=== PATIENT | male | born 1945 | race Caucasian/White ===

== ENCOUNTER → 2023-06-07 09:00 | Outpatient (REF) | payer OTHER, SELFPAY | LOC: RCS 09:00 | PROVIDERS: ATTENDING PHYSICIAN Family Medicine | DX: R55 Syncope and collapse (principal); R00.0 Tachycardia, unspecified; L74.510 Primary focal hyperhidrosis, axilla | CPT/HCPCS: 93225; 93226 ==

== ENCOUNTER → 2023-12-02 17:37 | Outpatient (REF) | payer OTHER, SELFPAY | LOC: PAVMRI 17:37 | PROVIDERS: ATTENDING PHYSICIAN Physician Assistant | DX: M25.561 Pain in right knee (principal); R20.2 Paresthesia of skin | CPT/HCPCS: 73721 ==

== ENCOUNTER → 2024-08-25 12:07 | Outpatient (REF) | payer OTHER, SELFPAY | LOC: RAD 12:07 | PROVIDERS: ATTENDING PHYSICIAN Physician Assistant | DX: M79.671 Pain in right foot (principal) | CPT/HCPCS: 73630 ==

== ENCOUNTER → 2025-05-30 12:42 | Outpatient (REF) | payer OTHER, SELFPAY | LOC: RAD 12:42 | PROVIDERS: ATTENDING PHYSICIAN Physician Assistant | DX: M51.362 Other intervertebral disc degeneration, lumbar region with discogenic back pain and lower extremity pain (principal); M51.26 Other intervertebral disc displacement, lumbar region; M54.6 Pain in thoracic spine; R20.2 Paresthesia of skin | CPT/HCPCS: 72072; 72110 ==

== ENCOUNTER → 2025-06-29 15:13 | Outpatient (REF) | payer OTHER, SELFPAY | LOC: PAVMRI 15:13 | PROVIDERS: ATTENDING PHYSICIAN Pain Medicine Interventional Pain Medicine; FAMILY PHYSICIAN Family Medicine | DX: M54.16 Radiculopathy, lumbar region (principal) | CPT/HCPCS: 72148 ==

== ENCOUNTER 2025-09-15 11:40 | Inpatient (IN) | payer OTHER, SELFPAY ==
[2025-09-14] VITALS (9 sets, daily range): BP systolic 124–153; BP diastolic 50–96; BMI 28.5; BMI 28.0
[2025-09-14 17:38] LABS: Hematocrit 44.7 % (39.0-52.0); Hemoglobin 14.5 g/dL (13.0-18.0); Mean Corp Hgb Conc. 32.4 g/dL (33.0-37.0); Mean Corpuscular Volume 88.0 fL (80.0-94.0); Nucleated Red Blood Cells % 0 % (-); Platelet Count 288 10^3/uL (130-400); Red Cell Dist. Width 13.6 % (11.5-14.5)
[2025-09-14] MEDS: ASPIRIN 325 MG PO (17:51)
[2025-09-14 18:03] LABS: ALT (SGPT) 23 U/L (0-50); AST (SGOT) 23 U/L (17-59); Albumin 4.3 g/dl (3.5-5.0); Alkaline Phosphatase 77 U/L (38-126); Blood Urea Nitrogen 21 mg/dl (9-20); Calcium 9.2 mg/dl (8.4-10.2); Carbon Dioxide 27 mmol/L (22-30); Chloride 106 mmol/L (98-107); Estimated Creatinine Clearance 66 ml/min; Glucose 86 mg/dl (70-99); Potassium 4.6 mmol/L (3.5-5.1); Sodium 138 mmol/L (135-145); Total Protein 7.1 g/dl (6.3-8.2); eGFR > 60.00
--- NOTE | 2025-09-14 18:45 | ED.GENMED ---
History of Present Illness
General
Chief Complaint: Dizziness
Source: patient and spouse
Exam Limitations: none
Time Seen by Provider: 09/14/25 17:13
History of Present Illness
History of Present Illness:
79-year-old male who presents for evaluation of dizziness accompanied by difficulty walking and difficulty with speech. Patient states that over the last few days he was getting dizzy when he bent over to pick something up. He states that he was
on a hunting trip and today when he got up he felt his legs were not right. at bedside states that when he got home the patient's speech seemed slurred. They feel that the speech is better now. Patient states he was able to get to see his
doctor and he was off balance when she tried to walk him. He states laying in bed he feels okay but just does not feel himself. No chest pain. No shortness of breath. No headache. No vision changes. Patient states he does not take any
medications. He is a former smoker. Patient did recently get treated for shingles a few weeks ago on his right face
Past History
Past History
ED Past Medical History: GERD, Hypercholesterolemia, Other (oa) and Other (Gout, cervical DJD, diverticulitis)
ED Past Surgical History: Orthopedic (Left hand surgery after traumatic finger amputations 09/15/2012)
Social History
Tobacco: Former smoker
Alcohol: Occasional
Drug: None
Personal:
Living: with family
Employment: Employed
Family History
Family History: Other (Noncontributory)
Phy Exam
Physical Exam
Physical Exam:
CONSTITUTIONAL Patient alert and oriented to person, place and time. Well-appearing. Vital signs reviewed.
HEAD atraumatic, normocephalic.
EYES eyelids normal to inspection, Extraocular muscles intact, Conjunctiva normal, Sclera normal.
NECK normal range of motion, Trachea midline, no jugular venous distention.
RESPIRATORY CHEST No respiratory distress noted, Chest expansion equal, Bilateral breath sounds clear.
CARDIOVASCULAR regular rate and rhythm, Heart sounds normal.
ABDOMEN abdomen nontender, Bowel sounds normal. No distention.
BACK normal inspection, no obvious deformities
UPPER EXTREMITY range of motion normal, Motor strength normal, no cyanosis, no edema.
LOWER EXTREMITY range of motion normal, Motor strength normal, no cyanosis, no edema.
NEURO Speech normal, No focal motor deficits, Evan coma scale 15, Memory normal, Cranial Nerves intact to screening exam. Normal [id number]. Normal [id number]. Negative Romberg.
SKIN skin warm, dry, and normal in color.
Course
Orders/Labs/Results
Orders:
Orders
09/14/25 Breakfast
Regular
At Your Request: Full Participation
09/14/25 16:25
Electrocardiogram (*1) Urgent
Reason for Study: Vertigo / Dizzy
CT Head W/o Iv Contrast Urgent
Comment:
Reason For Exam: dizziness and having gait dysfunction
EKG- Treatment ONCE
09/14/25 17:28
Complete Blood Count/With Diff Urgent
Comprehensive Metabolic Panel Urgent
09/14/25 17:48
Aspirin 325 mg PO NOW STA
09/14/25 19:41
Admit/Transfer Patient As Directed
Co-Sign Provider:
Level of Care: Observation services
Assign to:: Telemetry
Physician / Group: Oscar
Diagnosis: Dizziness
Reason for Telemetry: CVA/TIA
Date to Stop Telemetry: 09/17/25
Time to Stop Telemetry: 11:00
PRN Pain Medication Management As Directed
May give lesser potent ordered pain med per pt: Yes
preference::
Protocol:: Medication orders for pain may be administered in a
manner that supports deferring to patient preference
when the pt is:
- Requesting an ordered lesser potent pain medication.
Least to most potent pain medications are defined
as: acetaminophen < NSAID < tramadol < opioids
(morphine, oxycodone, hydromorphone).
- Requesting a lesser dose of the same medication IF
ORDERED.
- Requesting a less intrusive route of administration
if both routes are prescribed by the provider (PO <
IV).
09/14/25 19:42
Code Status As Directed
Resuscitation Status: Full Code
09/14/25 21:46
Acetaminophen [Tylenol] 650 mg PO Q4HPRN PRN
09/14/25 21:46
Activity As Directed
Activity Level: Ambulate
With Assistance
Bladder Scan As Directed
Follow Bladder Retention/Intermittent Cath Algorithm?: Yes
PRN if no void in __ hours: 6
Frequency: Per Retention Algorithm
If Bladder Scan Result >: 400
then:: Straight cath
EKG with chest pain [ECG as needed] As Directed
ECG as needed for:: Chest Pain
I/O [Intake/ Output] As Directed
Frequency: Per unit guidelines
Neurological Checks As Directed
Frequency: q4h
Orthostatic Vital Signs As Directed
Orthostatic VS Frequency: BID
Pneumatic Compression Sleeves As Directed
Type: Knee high
Straight Cath As Directed
Frequency: Per Retention Algorithm
Additional Instructions: straight cath as needed per acute urinary retention algorithm for 24 hrs
Additional Instructions: for bladder scan greater than 400 mL
Vital Signs As Directed
Frequency: Per unit guidelines
Weight As Directed
Frequency: Daily
Oxygen Therapy [O2 Therapy] [RESP] Routine
Titrate/Wean O2 to maintain O2 sat greater than (%): 94
Ot Eval And Treat Routine
PT Consult [Pt Eval And Treat] Routine
Activity Level: Ambulate
With Assistance
Speech Therapy Eval & Treat Routine
DX Deep Vein Thrombosis Video Routine
09/15/25 06:00
Basic Metabolic Panel IN AM
Cardiovascular Evaluation IN AM
Complete Blood Count/No Diff IN AM
MR Brain Without Contrast IN AM
Comment:
Reason For Exam: CVA / TIA
Recent pill cam endoscopy?: No
09/15/25 08:00
Aspirin Chewable [Low Strength Aspirin] 81 mg PO DAILY
09/17/25 11:00
DC Protocol for Telemetry ONCE
Abnormal Lab Results
09/14/25
17:28
MCHC 32.4 L g/dL
(33.0-37.0)
Absolute Monos (auto) 1.1 H 10^3/uL
(0.1-0.6)
Monocytes % 10.5 H %
(1.7-9.3)
BUN 21 H mg/dl
(9-20)
09/14/25 17:28
09/14/25 17:28
Vital Signs
Initial and Last Documented VS:
Initial Vital Signs
Temp Pulse Resp BP Pulse Ox
98.0 F 81 16 153/96 98
09/14/25 16:22 09/14/25 16:22 09/14/25 16:22 09/14/25 16:22 09/14/25 16:22
Last Documented Vital Signs
Temp Pulse Resp BP Pulse Ox
97.8 F 74 18 124/50 96
09/14/25 23:17 09/14/25 23:17 09/14/25 23:17 09/14/25 23:17 09/14/25 23:17
MDM/Problems Addressed
Differential Diagnosis Includes:
CVA, vertigo, arrhythmia, dehydration, postherpetic neuralgia
*Pulse Oximetry
SaO2: 97
Oxygen Mode of Delivery: Room air
Patient hypoxic: no
*EKG
Interpreted by ED Provider?: Yes
Interpretation: normal
Rate: normal
Rhythm: sinus
[place]: normal axis
Interval: normal interval
Ischemia: no ischemia
*Car Dumper Interpretation
Rate: normal
Interpretation: normal
Rhythm: sinus
*Critical Care Note
Total Time (30-74mins, 75-104mins- exclusive of procedures): Not Applicable
Data Reviewed
Source: patient and spouse
Further Testing Considered But Not Given:
Considered CT angiogram but currently no symptoms
Patient Management
Escalation/DeEscalation of care consider admission/obs:
79-year-old male presents after he was dizzy and accompanied by difficulty walking and speech changes. Concerning for possible TIA versus CVA. Needs workup. Exam normal during exam ED stay. Admit
ED Attending Note
-
Portions of this chart may have been created with voice recognition software.� Occasional wrong word or��sound alike� substitutions may have occurred due to the inherent limitations of voice recognition software.
Discharge Plan
Departure
Patient Disposition: Admit
Date of Disposition: 09/14/25
Time of Disposition: 18:45
Admit to: Telemetry
Presentation/result/management discussed w/ accepting MD/DO: Hospitalist
Discharge Problem:
Dizziness, Abnormal gait, r/o CVA
Interventions
Interventions:
*Risk Screen - Suicide Last Done: 09/14/25 17:15
*General Assessment Last Done: 09/14/25 16:22
*Neglect/Abuse Screening Last Done: 09/14/25 16:22
*ED COVID-19 Vaccine History Last Done: 09/14/25 21:57
*ED Influenza Vaccine History Last Done: 09/14/25 16:22
[facility] Fall Risk Assessment Tool Last Done: 09/14/25 17:31
*Nursing Disposition Last Done: 09/14/25 21:46
ED- Neurological Assessment Last Done: 09/14/25 17:32
ED- Cardiac Assessment Last Done: 09/14/25 17:32
ED Swallowing Screen Last Done: 09/14/25 17:50
Discharge Date and Time
Discharge Date/Time: 09/14/25 21:50
--- NOTE | 2025-09-14 19:43 | HPS.HSE ---
Family Physician
-
Family Physician: Kathie Michelle
Chief Complaint
-
Dizziness
History of Present Illness
Patient is a 79y M with no significant PMH who presents to ED for evaluation of dizziness x several days. Patient states that he went to the [facility] on a hunting trip on Thursday. Thursday evening he had a dizzy spell when bending over to pick
something up. The following morning he was dizzy on initial standing after getting out of bed. He felt well for the rest of the day. Last PM he again had a dizzy spell while bending over to scrap picker firewood. He nearly fell and had to grab
something to steady himself. This AM he felt very unsteady on his feet after getting OOB and had to sit back down on the bed for several minutes. Symptoms then subsided.
Patient returned home earlier today and his family noted that he appeared somewhat unsteady. They also felt that his speech was slurred. They encouraged him to present to the ED for further evaluation.
Patient feels that he was eating / drinking normally during his trip. He had a couple of beers each evening.
Patient feels well at present and has no current complaints.
Note: Patient had shingles 3 weeks ago involving the R ear, face, lips and jaw. The rash has since resolved. He had R ear pain and fullness with that episode as well - which has been improving but not yet fully resolved.
Medical History
Past Medical History
Past Medical History: Reports None
Past Surgical History: Reports Other
Additional Past Surgical History:
L Hand Digital Amputations (4/)
Appendectomy
Anal Fissurectomy
Social History
Tobacco: Non-smoker
Alcohol: Occasional
Drug: None
Personal:
Family History
Family History: Not pertinent
Allergies / Home Medications
Allergies reflects when Allergies were last updated in [employer].
Home Medications with original date entered in [employer]
Allergy/Medication List:
Allergies
Allergy/AdvReac Type Severity Reaction Status Date / Time
Sulfa (Sulfonamide Allergy Unknown Verified 09/14/25 17:08
Antibiotics)
Home Medications
No Meds [No Current Medications] 09/14/25
Review of Systems
-
History Source: Patient
A 12 point ROS was completed and negative except as noted: Yes
Constitutional: Denies Fever, Fatigue or Chills
EENT: Denies Sore Throat
Respiratory: Denies Cough or Trouble Breathing
Cardiac: Denies Chest Pain or Palpitations
Abdomen/GI: Denies Abdominal Pain, Nausea, Vomiting or Diarrhea
: Denies Dysuria or Flank Pain
Musculoskeletal: Denies Joint Pain or Edema
Neurological: Reports Dizzy and Weakness; Denies Headache or Numbness
Psych: Denies Depression or Anxiety
Physical Exam
Vital Signs
Vital Signs
Temp Pulse Resp BP Pulse Ox
98.2 F 75 18 136/83 97
09/14/25 17:14 09/14/25 19:30 09/14/25 17:14 09/14/25 19:00 09/14/25 19:30
Physical Exam
General: Other (79y M in no acute distress.)
HEENT: Moist mucous membranes
Respiratory: Clear; No Wheezes, Rales or Rhonchi
Cardiac: S1/S2 and Regular Rhythm; No Murmur
GI: Soft, Non Tender, Non Distended and Normal Bowel Sounds
Musculoskeletal: No Clubbing, No Cyanosis and No Edema
Neuro: AO x 3 and Other (Mild L facial droop. Tongue extends to midline. Smile is symmetric.)
Laboratory Results
-
09/14/25 17:28
09/14/25 17:28
Laboratory Results
Total Bilirubin 0.9 mg/dl (0.2-1.3) 09/14/25 17:28
AST 23 U/L (17-59) 09/14/25 17:28
ALT 23 U/L (0-50) 09/14/25 17:28
Alkaline Phosphatase 77 U/L (38-126) 09/14/25 17:28
Impression/Plan
-
A/P: Patient is a 79y M with no noted PMH who presents to ED for evaluation of recent episodes of dizziness and reported slurred speech over the past 2-3 days.
Dizziness
Slurred Speech
- Observe overnight for further evaluation and treatment.
- Symptoms seem positional in nature - occurring after bending forward or when first rising in the AM.
- ? related to recent zoster infection with ear involvement?
- CT unremarkable in the ED. MRI in the AM to rule out CVA.
- Follow for any new neurologic changes / exam findings.
- PT / OT / Speech evaluations.
- ASA daily for now pending remainder of work-up.
- Check lipid panel, A1C, etc.
- Follow for any new / recurrent symptoms.
DVT Prophylaxis: SCDs
Code Status: Full
--- NOTE | 2025-09-14 21:55 | PTCARENOTE ---
Received patient from ED via stretcher. Patient ambulated from stretcher to bed with minimal assistance. AAOx3, no current complaints of pain or dizziness. Oriented patient to room and placed call amado within reach.
[2025-09-15] VITALS (9 sets, daily range): BP systolic 104–154; BP diastolic 65–96; PULSE 71–93; O2SAT 96; BMI 27.3
[2025-09-15] MEDS: TYLENOL 650 MG PO (07:23)
[2025-09-15] MEDS: LOW STRENGTH ASPIRIN 81 MG PO (07:24)
[2025-09-15 08:14] LABS: Hematocrit 43.6 % (39.0-52.0); Hemoglobin 14.4 g/dL (13.0-18.0); Mean Corp Hgb Conc. 33.0 g/dL (33.0-37.0); Mean Corpuscular Volume 86.9 fL (80.0-94.0); Platelet Count 283 10^3/uL (130-400); Red Cell Dist. Width 13.7 % (11.5-14.5)
[2025-09-15 08:29] LABS: Blood Urea Nitrogen 20 mg/dl (9-20); Calcium 9.0 mg/dl (8.4-10.2); Carbon Dioxide 24 mmol/L (22-30); Chloride 106 mmol/L (98-107); Estimated Creatinine Clearance 82 ml/min; Glucose 98 mg/dl (70-99); HDL Cholesterol 32 mg/dl; LDL Cholesterol, Calculated 131 mg/dl; Potassium 4.7 mmol/L (3.5-5.1); Sodium 137 mmol/L (135-145); Very Low Density Lipoprotein 16 mg/dl (0-30); eGFR > 60.00
--- NOTE | 2025-09-15 08:32 | W.PN.HOSP.TC ---
Addendum entered and electronically signed by Jarocho Hernandez DO 09/15/25 12:20:
Brain MRI confirms focal area of acute to subacute infarction involving the left anterolateral georgette.
Neurology has been consulted.
Check MRA head and neck, echocardiogram.
Continue low-dose aspirin, defer Plavix initiation to neurology.
Add Lipitor.
Original Note:
Today's Communication/Plan
-
Brain MRI
PT/OT
Assessment / Plan
Assessment / Plan
Gen-AAOx3, NAD
HEENT-NC, AT, anicteric, clear oral mm
Neck-supple
CV-reg, no M, +S1/S2
Lungs-clear B/L
Abd-soft, NT, ND
Ext-no edema
Musculoskeletal-no cyanosis, clubbing
Skin-warm and dry
Neuro-grossly non-focal
Psych-calm, cooperative
Gait ataxia -denies vertigo, nausea.
Differential diagnosis of positional vertigo versus stroke versus other.
Brain MRI pending.
PT/OT.
Patient denies history of stroke. Denies stroke risk factors. Not on chronic medications.
Full code
Anticipated Discharge: Within 24 hours
Subjective/Interval History
-
Date of Service: September 15, 2025
Patient seen and examined, currently without symptoms. Did have mild unsteadiness with getting out of bed this morning that resolved.
Objective Data
-
Labs:
Laboratory Results
09/15/25
07:24
WBC 8.3
Hgb 14.4
Hct 43.6
Plt Count 283
Sodium 137
Potassium 4.7
Chloride 106
Carbon Dioxide 24
BUN 20
Creatinine 0.8
Glucose 98
Calcium 9.0
Vital Signs:
Vital Signs
Temp Pulse Resp BP Pulse Ox
98 F 68 18 127/73 95
09/15/25 07:28 09/15/25 07:28 09/15/25 07:28 09/15/25 07:28 09/15/25 07:28
Review of Systems
-
History Source: Patient
All other systems: Reviewed and negative
--- NOTE | 2025-09-15 08:50 | PTOTSP ---
Dysphagia Evaluation
No signs concerning for oral/pharyngeal dysphagia observed during clinical bedside swallowing evaluation.
Patient reported episodes of transient dysarthria (slurred speech at beginning of words) that was not present during this evaluation.
Recommend:
1. Regular, Thin
2. Medications as best tolerated
3. Full cognitive communication evaluation as appropriate pending results of neuro imaging.
[2025-09-15 09:15] LABS: Hepatitis C Antibody Negative (Negative)
--- NOTE | 2025-09-15 10:47 | PTOTSP ---
Pt presents to OT with grossly intact vision and cognition and good UB ROM and strength with exception to previous amputations of digits on left hand. Pt is at mod I level with basic ADLs, transfers and functional mobility without AD. Orthostatic
vitals taken and pt was not orthostatic, nor did he exhibit any symptoms during session. No further skilled OT indicated at this time
[2025-09-15 11:25] LABS: Glycohemoglobin (HgbA1c) 6.0 % (4.0-5.9)
--- NOTE | 2025-09-15 12:24 | CON.NEURO4 ---
Addendum entered and electronically signed by Arsalan Howard MD 09/15/25 18:44:
I saw the patient today with the nurse practitioner Shira Miller and I agree with her assessment and management plan. I personally performed the medical decision making and my assessment and management plan are as given below.
This is a 79-year-old male who has presented to the hospital on 09/14/25 with report of dizziness, balance issues, and dysarthria. Patient and his spouse at bedside report that three days ago [place] 09/12/25 [place] he [place]
over, stood back up, and suddenly felt dizzy, which he describes as an off balance sensation. He notes that over the next several days his balance felt off and his speech was mildly slurred. The patient saw his PCP yesterday who referred him to the
ER for evaluation.
Neurologic examination:
Alert oriented x 3
Speech is clear
The cranial nerves II to XII grossly intact
The motor strength is grossly 5/5 bilaterally
The sensations are intact bilaterally
The patient does not have any limb ataxia
The MRI of the brain showed focal area of acute to subacute infarction involving the left anterolateral georgette.
Despite the MRI showing a showing an infarct involving the left anterolateral georgette, clinically the patient does not have any gross focal deficit.
MRI of the head and MRI of the neck
Echocardiogram
LDL goal < 70
Aspirin 81 mg daily and Plavix 75 mg daily x 21 days, then stop Plavix and continue with aspirin
Atorvastatin 40 mg daily
I had a detailed discussion with the patient and his regarding the assessment and management plan and they verbalized understanding of discussion. The patient's agrees that the patient clinically has returned to his baseline.
Original Note:
Consultation - Neurology 4
-
CONSULTING PHYSICIAN: Arsalan Howard MD
REFERRING PHYSICIAN: Hospitalists/Dr. Hernandez
DICTATED BY: HOMAR Dow
DATE/TIME OF REQUEST: 09/15/25
DATE/TIME OF CONSULTATION: 09/15/25
Reason for Consultation: Slurred speech, gait dysfunction
History of Present Illness:
This is a 79-year-old male who has presented to the hospital on 09/14/25 with report of dizziness, balance issues, and dysarthria. Patient and his spouse at bedside report that three days ago on 09/12/25 [place] when he [place]
over, stood back up, and suddenly felt dizzy, which he describes as an off balance sensation. He notes that over the next several days his balance felt off and his speech was mildly slurred. He had shingles on the right side of his face 5 weeks ago
and his spouse thinks his speech has been mildly dysarthric since then. He drove himself back to [facility] and saw his PCP yesterday, who referred him to the ER for evaluation. CT head was obtained on arrival and is negative for any acute
abnormalities. Patient was outside of the time window for TNK/IAT. He was loaded with aspirin in the ER. MRI brain was obtained this morning and demonstrates a subacute left pontine ischemic stroke. Today (09/15/25), patient reports having a mild
headache this morning but now he feels at his baseline. He denies any headache, dizziness, vision changes, speech/swallow difficulty, numbness, and weakness. He denies any history of TIA or stroke in the past and he was not taking any blood-thinning
medications.
Past Medical History: Shingles, GERD, HLD, gout, osteoarthritis, cervical DJD, diverticulitis.
Surgical History: Appendectomy, anal fissurectomy, left hand 4th and 5th finger amputation.
Family History: Reviewed and noncontributory.
Social History: Denies tobacco and illicit drug use. Occasional alcohol.
Allergies: Sulfa.
Home Medications: None.
Review of Symptoms:
Patient denies any fever, headache, chest pain, shortness of breath, GI or symptoms.
�Per the HPI.�All systems are reviewed negative except above.
Physical Exam:
The patient is afebrile, abdomen is nondistended, breathing is unlabored, skin is warm and dry, no edema.
NIH Stroke Scale:
I performed the NIH stroke scale on the patient on 09/15/25 at 1245. The patient scored 0 points on the NIH stroke scale assessment, which were assigned as follows: See below.
Neurologic Examination:
The patient is awake, alert and oriented x 3. He is able to follow commands and answer questions appropriately. There is no aphasia or dysarthria. On cranial nerve assessment, pupils are 3 mm bilateral, round and reactive to light and
accommodation. Visual patino are full. Extraocular movements are intact. Facial sensations are intact and bilaterally symmetrical, there is no facial asymmetry. Hearing is intact bilaterally to normal conversation volume. Tongue palate and uvula are
midline. Sternocleidomastoid strengths are full bilaterally. Motor strengths are 5/5 bilateral upper and lower extremities on medical research [place] scale. There is no drift or involuntary movement noted. There was no extinction noted on double
simultaneous stimulation. Coordination is intact by finger to nose bilaterally.
Lab Results: See below.
Neuro Imaging:
1. CT Head 09/14/25: No evidence of acute intracranial abnormality.
2. MRI brain 09/15/25: Focal area of acute to subacute infarction involving the left anterolateral georgette.
Differentials for the patient's presentation include:
1. Subacute left pontine ischemic stroke; uncertain etiology, possibly cardioembolic vs small vessel disease.
Patient has the following risk factors for their symptoms: Age
IV Tenecteplase/IAT candidacy: Patient was outside of the time window for TNK/IAT.
Recommendations:
-Initiate DAPT with aspirin 81mg and clopidogrel 75mg for 21 days. After 21 days, stop clopidogrel and continue aspirin 81mg daily only indefinitely.
-MRA head/neck pending.
-TTE pending. If this is unremarkable, will recommend outpatient cardiac monitoring.
-LDL goal <70. LDL is 131. Continue newly initiated atorvastatin 40mg.
-Goal normoglycemia, hbA1c is 6.0.
-NIHSS and neurological checks per unit guidelines.
-Provide patient with a stroke education packet.
-DVT prophylaxis.
Discussed patient care with: Dr. Howard, the patient, patient's spouse
Vital Signs and Labs
-
Vital Signs and Labs:
Vital Signs
Temp Pulse Resp BP Pulse Ox
98.2 F 83 18 121/75 96
09/15/25 11:49 09/15/25 11:49 09/15/25 11:49 09/15/25 11:49 09/15/25 12:52
Lab Results
09/15/25 07:24
09/15/25 07:24
Sodium 137 mmol/L (135-145) 09/15/25 07:24
Potassium 4.7 mmol/L (3.5-5.1) 09/15/25 07:24
BUN 20 mg/dl (9-20) 09/15/25 07:24
Glucose 98 mg/dl (70-99) 09/15/25 07:24
Calcium 9.0 mg/dl (8.4-10.2) 09/15/25 07:24
LDL Cholesterol, Calc 131 mg/dl 09/15/25 07:24
Medications
-
Active Medications
Generic Name Dose Route Start Last Admin
Trade Name Freq PRN Reason Stop Dose Admin
Acetaminophen 650 mg 09/14/25 21:46 09/15/25 07:23
Acetaminophen 325 Mg Tablet PO 10/12/25 21:45 650 mg
Q4HPRN PRN Administration
Mild Pain / Temp > 101
Aspirin 81 mg 09/15/25 08:00 09/15/25 07:24
Aspirin 81 Mg Chewable Tablet PO 10/13/25 07:59 81 mg
DAILY ALONDRA Administration
Atorvastatin Calcium 40 mg 09/15/25 18:00
Atorvastatin (Lipitor) 40 Mg Tablet PO 10/13/25 17:59
QPM ALONDRA
Clopidogrel Bisulfate 75 mg 09/15/25 13:00 09/15/25 13:19
Clopidogrel 75 Mg Tablet PO 10/05/25 08:01 75 mg
DAILY ALONDRA Administration
Home Medications
�Medication �Instructions �Recorded
No Meds [No Current Medications] 09/14/25
NIH Stroke Score
Subsequent NIH Scale
Date of Subsequent NIH Scale: 09/15/25
Time of Subsequent NIH Scale: 12:45
NIH Stroke Score
Level of Consciousness: 0 - Alert
LOC Questions: 0-Answers both correctly
LOC Commands: 0-Performs both correctly
Best Horizontal Gaze: 0-Normal
Visual Patino: 0=Normal, no visual loss
Facial Palsy: 0=Normal, symmetrical
Motor - Right Arm: 0=No drift 10 seconds
Motor - Left Arm: 0=No drift 10 seconds
Motor - Right Le-No drift 5 seconds
Motor - Left Le-No drift 5 seconds
Limb Ataxia: 0-Absent
Sensation: 0-Normal
Best Language: 0-No aphasia
Dysarthria: 0-Normal
Extinction and Inattention: 0-No abnormality
NIH Total Score:: 0
Modified [place] (mRS) Score
Modified Diogo Scale (mRS): No symptoms
Score: 0
Alteplase Contraindication
Inclusion and Exclusion criteria reviewed: Yes
Reasons for NON-Tx with Thrombolytics ABSOLUTE Exclusions: Greater than 4.5 hrs from onset of sxs
IAT Contraindications: NIHSS < 6
[2025-09-15] MEDS: PLAVIX 75 MG PO (13:19)
--- NOTE | 2025-09-15 16:24 | CM ---
Alert awake oriented patient who lives with Shana in a 2 story home with 2 steps to enter 12 and to bed/bathroom. He is independent in driving and ADLs.No DME.IMM reviewed signed on chart.Offered VN he declined need.
VN/SNF HX
Pharmacy [facility] [id number] Michelle
PLAN Home no needs
[2025-09-15] MEDS: LIPITOR 40 MG PO (17:01)
[2025-09-16 03:16] VITALS: BP 131/77
[2025-09-16 06:00] VITALS: BMI 27.6
[2025-09-16 07:48] VITALS: BP 145/90
--- NOTE | 2025-09-16 08:19 | W.PN.HOSP.TC ---
Addendum entered and electronically signed by Jarocho Hernandez DO 09/16/25 13:43:
MRA head and neck without significant occlusion or stenosis.
Cardiology (Dr. Valles) has arranged for a home monitoring tech, he is to [employer] the monitor on Thursday after 8 AM in the cardiology office.
Okay to discharge home today. Outpatient follow-up with PCP and neurology.
Updated patient with the above information.
Original Note:
Today's Communication/Plan
-
MRA
Assessment / Plan
Assessment / Plan
Gen-AAOx3, NAD
HEENT-NC, AT, anicteric, clear oral mm
Neck-supple
CV-reg, no M, +S1/S2
Lungs-clear B/L
Abd-soft, NT, ND
Ext-no edema
Musculoskeletal-no cyanosis, clubbing
Skin-warm and dry
Neuro-grossly non-focal
Psych-calm, cooperative
Acute stroke -noted on MRI, left anterolateral georgette.
Echocardiogram LVEF 55%, mild concentric LVH.
MRA head and neck pending.
Continue DAPT x 21 days then aspirin alone.
Continue atorvastatin.
Outpatient cardiac monitoring on discharge, [place] text sent to cardiology.
Monitor blood pressures at home, discussed in detail with patient. Patient denies history of hypertension.
Close outpatient follow-up.
Stroke risk factor reduction including diet, exercise, weight loss.
Did well with PT/OT/speech.
Full code
Dispo -discharge today if MRA head and neck unremarkable. Arrange for cardiac monitoring prior to discharge.
Anticipated Discharge: Today
Subjective/Interval History
-
Date of Service: September 16, 2025
Patient seen and examined, no complaints.
Objective Data
-
Vital Signs:
Vital Signs
Temp Pulse Resp BP Pulse Ox
97.7 F 77 18 145/90 98
12/13/25 07:48 09/16/25 07:48 09/16/25 07:48 09/16/25 07:48 09/16/25 07:48
I&O
09/15/25 09/16/25 09/17/25
06:59 06:59 06:59
Intake Total 680 / 680
Balance 680 / 680
Review of Systems
-
History Source: Patient
All other systems: Reviewed and negative
[2025-09-16] MEDS: LOW STRENGTH ASPIRIN 81 MG PO (08:24)
[2025-09-16] MEDS: PLAVIX 75 MG PO (08:24)
[2025-09-16] MEDS: TYLENOL 650 MG PO (08:25)
[2025-09-16 11:42] VITALS: BP 143/96; BP 152/97; BP 153/103; PULSE 104; PULSE 94; PULSE 97
--- NOTE | 2025-09-16 13:42 | W.DS.TRANS ---
DC Summary - Departmental Secretary
-
Discharge Instructions:
Discharge Diagnosis/Procedures Acute stroke
Diet Low Fat,Low Cholesterol
Activity As tolerated
Driving Restrictions As prior to admission
Bathing Restrictions None
Instructions:
Stand-Alone Forms:
Changes to Home Medications: No
Discharge Medications:
DC Medications w/original date entered in [facility]
aspirin 81 mg chewable tablet 81 mg PO DAILY #60 tabs 09/16/25
atorvastatin 40 mg tablet 40 mg PO QPM #30 tabs 09/16/25
clopidogrel 75 mg tablet 75 mg PO DAILY #19 tabs 09/16/25
Home Medication Changes
Pending Results: No
--- NOTE | 2025-09-16 14:38 | CM ---
CM reviewed chart and noted dc order
Pt discharged prior to CM meeting with them
Per PT/OT/ST- no needs noted
IMM from 09/14 remains valid
Discharge Disposition- home, no needs
== END 2025-09-16 14:29 | disposition home or self-care (01) | DRG 66 ==
LOC: 4 EAST ACU 11:40
PROVIDERS: Emergency Medicine; ADMITTING PHYSICIAN Hospitalist; ATTENDING PHYSICIAN Hospitalist; CONSULT PHYSICIAN Psychiatry & Neurology Neurology; EMERGENCY PHYSICIAN Emergency Medicine; FAMILY PHYSICIAN Family Medicine
DX: I63.29 Cerebral infarction due to unspecified occlusion or stenosis of other precerebral arteries (principal); R26.2 Difficulty in walking, not elsewhere classified; R47.1 Dysarthria and anarthria; E78.00 Pure hypercholesterolemia, unspecified; K21.9 Gastro-esophageal reflux disease without esophagitis; M10.9 Gout, unspecified; M47.812 Spondylosis without myelopathy or radiculopathy, cervical region; Z87.891 Personal history of nicotine dependence; Z87.19 Personal history of other diseases of the digestive system; Z79.82 Long term (current) use of aspirin; Z86.61 Personal history of infections of the central nervous system; Z88.2 Allergy status to sulfonamides
CPT/HCPCS: 70450; 70544; 70548; 70551; 80048; 80053; 80061; 83036; 85025; 85027; 86803; 92610; 93005; 93306; 97116; 97162; 97166; 99285; A9575